=== PATIENT | male | born 1975 | race Caucasian/White ===

== ENCOUNTER → 2016-11-24 | Outpatient (CLI) | payer OTHER | END | disposition home or self-care (01) | LOC: ECT 09:35 | DX: F31.63 Bipolar disorder, current episode mixed, severe, without psychotic features (principal); F90.9 Attention-deficit hyperactivity disorder, unspecified type ==

== ENCOUNTER 2016-12-28 04:45 | Outpatient (RCR) | payer OTHER ==
[~2016-12-28] VITALS: Ht 167.6 cm; Wt 70.3 kg
[2016-12-30] MEDS ORDERED: Succinylcholine 20mg/ml 10ml vial ONE (07:00)
[2016-12-30] MEDS ORDERED: Methohexital Sodium Syr 100mg/10ml IVP ONE (07:00)
[2016-12-30] MEDS ORDERED: Midazolam 2mg/2ml Inj ONE (07:00)
[2016-12-30] MEDS ORDERED: NS 500ML IV ONE (07:00)
[2016-12-30 07:50] VITALS: BP 102/72
[2016-12-30] MEDS ORDERED: Sodium Chloride 500ML 500 ML IV ONE (08:17)
[2016-12-30 08:20] VITALS: BP 122/80
[2016-12-30 08:25] VITALS: BP 120/60
[2016-12-30 08:30] VITALS: BP 120/62
[2016-12-30 08:35] VITALS: BP 115/72
[2016-12-30 09:03] VITALS: BP 102/72
[2017-01-01] MEDS ORDERED: Methohexital Sodium Syr 100mg/10ml IVP ONE (06:00)
[2017-01-01] MEDS ORDERED: Succinylcholine 20mg/ml 10ml vial ONE (06:00)
[2017-01-01] MEDS ORDERED: NS 500ML IV ONE (06:00)
[2017-01-01] MEDS ORDERED: Midazolam 2mg/2ml Inj ONE (06:00)
[2017-01-01 07:55] VITALS: BP 110/68
[2017-01-01] MEDS ORDERED: Sodium Chloride 500ML 500 ML IV ONE (08:13)
[2017-01-01 08:15] VITALS: BP 136/62
[2017-01-01 08:20] VITALS: BP 125/64
[2017-01-01 08:25] VITALS: BP 122/68
[2017-01-01 08:30] VITALS: BP 110/65
[2017-01-04] MEDS ORDERED: Methohexital Sodium Syr 100mg/10ml IVP ONE (07:00)
[2017-01-04] MEDS ORDERED: NS 500ML IV ONE (07:00)
[2017-01-04] MEDS ORDERED: Succinylcholine 20mg/ml 10ml vial ONE (07:00)
[2017-01-04] MEDS ORDERED: Midazolam 2mg/2ml Inj ONE (07:00)
[2017-01-04 07:42] VITALS: BP 102/74
[2017-01-04] MEDS ORDERED: Sodium Chloride 500ML 500 ML IV ONE (07:55)
[2017-01-04 08:00] VITALS: BP 122/69
[2017-01-04 08:05] VITALS: BP 122/78
[2017-01-04 08:10] VITALS: BP 115/68
[2017-01-04 08:15] VITALS: BP 117/68
== END 2017-01-05 | disposition home or self-care (01) ==
LOC: ECT 04:45
DX: F31.63 Bipolar disorder, current episode mixed, severe, without psychotic features (principal); F90.9 Attention-deficit hyperactivity disorder, unspecified type
CPT/HCPCS: 90870; J0330; J2250; J7040

== ENCOUNTER 2017-01-06 05:13 | Outpatient (RCR) | payer OTHER ==
[~2017-01-06] VITALS: Ht 167.6 cm; Wt 70.3 kg
[2017-01-06] MEDS ORDERED: Methohexital Sodium Syr 100mg/10ml IVP ONE ×2 (05:14)
[2017-01-06] MEDS ORDERED: Dexamethasone 4mg/ml vial ONE (05:14)
[2017-01-06] MEDS ORDERED: Midazolam 2mg/2ml Inj ONE ×2 (05:14)
[2017-01-06] MEDS ORDERED: NS 500ML IV ONE (05:14)
[2017-01-06] MEDS ORDERED: NS 500ML ONE (05:14)
[2017-01-06] MEDS ORDERED: Succinylcholine 20mg/ml 10ml vial ONE ×2 (05:14)
[2017-01-06 07:52] VITALS: BP 102/60
[2017-01-06] MEDS ORDERED: Sodium Chloride 500ML 500 ML IV ONE (08:01)
[2017-01-06 08:10] VITALS: BP 120/60
[2017-01-06 08:15] VITALS: BP 105/53
[2017-01-06 08:20] VITALS: BP 110/69
[2017-01-06 08:25] VITALS: BP 110/53
[2017-01-08] MEDS ORDERED: Methohexital Sodium Syr 100mg/10ml IVP ONE (07:00)
[2017-01-08] MEDS ORDERED: Midazolam 2mg/2ml Inj ONE (07:00)
[2017-01-08] MEDS ORDERED: NS 500ML IV ONE (07:00)
[2017-01-08] MEDS ORDERED: Succinylcholine 20mg/ml 10ml vial ONE (07:00)
[2017-01-08 07:48] VITALS: BP 103/64
[2017-01-08] MEDS ORDERED: Sodium Chloride 500ML 500 ML IV ONE (08:03)
[2017-01-08 08:05] VITALS: BP 118/64
[2017-01-08 08:10] VITALS: BP 116/65
[2017-01-08 08:15] VITALS: BP 115/56
[2017-01-08 08:20] VITALS: BP 110/58
[2017-01-11] MEDS ORDERED: Midazolam 2mg/2ml Inj ONE (06:00)
[2017-01-11] MEDS ORDERED: Methohexital Sodium Syr 100mg/10ml IVP ONE (06:00)
[2017-01-11] MEDS ORDERED: NS 500ML IV ONE (06:00)
[2017-01-11] MEDS ORDERED: Succinylcholine 20mg/ml 10ml vial ONE (06:00)
[2017-01-11 08:15] VITALS: BP 111/78
[2017-01-11] MEDS ORDERED: Sodium Chloride 500ML 500 ML IV ONE (08:26)
[2017-01-11 08:30] VITALS: BP 120/64
[2017-01-11 08:35] VITALS: BP 120/64
[2017-01-11 08:40] VITALS: BP 123/70
[2017-01-11 08:45] VITALS: BP 122/57
[2017-01-13] MEDS ORDERED: Methohexital Sodium Syr 100mg/10ml IVP ONE (07:00)
[2017-01-13] MEDS ORDERED: NS 500ML IV ONE (07:00)
[2017-01-13] MEDS ORDERED: Succinylcholine 20mg/ml 10ml vial ONE (07:00)
[2017-01-13] MEDS ORDERED: Midazolam 2mg/2ml Inj ONE (07:00)
[2017-01-13 09:12] VITALS: BP 101/61
[2017-01-13] MEDS ORDERED: Sodium Chloride 500ML 500 ML IV ONE (09:26)
[2017-01-13 09:30] VITALS: BP 114/60
[2017-01-13 09:35] VITALS: BP 119/63
[2017-01-13 09:40] VITALS: BP 116/59
[2017-01-13 09:45] VITALS: BP 118/60
[2017-01-15] MEDS ORDERED: Midazolam 2mg/2ml Inj ONE (07:00)
[2017-01-15] MEDS ORDERED: Succinylcholine 20mg/ml 10ml vial ONE (07:00)
[2017-01-15] MEDS ORDERED: NS 500ML ONE (07:00)
[2017-01-15] MEDS ORDERED: Methohexital Sodium Syr 100mg/10ml IVP ONE (07:00)
[2017-01-15 07:56] VITALS: BP 117/74
[2017-01-15] MEDS ORDERED: Sodium Chloride 500ML 500 ML IV ONE (08:09)
[2017-01-15 08:10] VITALS: BP 123/66
[2017-01-15 08:15] VITALS: BP 118/65
[2017-01-15 08:20] VITALS: BP 116/69
[2017-01-15 08:25] VITALS: BP 121/57
[2017-01-18] MEDS ORDERED: Midazolam 2mg/2ml Inj ONE (07:00)
[2017-01-18] MEDS ORDERED: Dexamethasone 4mg/ml vial ONE (07:00)
[2017-01-18] MEDS ORDERED: Succinylcholine 20mg/ml 10ml vial ONE (07:00)
[2017-01-18] MEDS ORDERED: Methohexital Sodium Syr 100mg/10ml IVP ONE (07:00)
[2017-01-18] MEDS ORDERED: NS 500ML ONE (07:00)
[2017-01-18 07:10] VITALS: BP 102/68
[2017-01-18] MEDS ORDERED: Sodium Chloride 500ML 500 ML IV ONE (07:45)
[2017-01-18 07:50] VITALS: BP 128/67
[2017-01-18 07:55] VITALS: BP 114/72
[2017-01-18 08:00] VITALS: BP 110/62
[2017-01-18 08:05] VITALS: BP 115/66
[2017-01-22] MEDS ORDERED: Succinylcholine 20mg/ml 10ml vial ONE (06:00)
[2017-01-22] MEDS ORDERED: NS 500ML ONE (06:00)
[2017-01-22] MEDS ORDERED: Dexamethasone 4mg/ml vial ONE (06:00)
[2017-01-22] MEDS ORDERED: Methohexital Sodium Syr 100mg/10ml IVP ONE (06:00)
[2017-01-22] MEDS ORDERED: Midazolam 2mg/2ml Inj ONE (06:00)
[2017-01-22 07:45] VITALS: BP 100/62
[2017-01-22] MEDS ORDERED: Sodium Chloride 500ML 500 ML IV ONE (08:05)
[2017-01-22 08:10] VITALS: BP 126/71
[2017-01-22 08:15] VITALS: BP 112/58
[2017-01-22 08:20] VITALS: BP 106/60
[2017-01-22 08:25] VITALS: BP 107/59
[2017-01-25 08:49] VITALS: BP 104/63
[2017-01-25] MEDS ORDERED: Sodium Chloride 500ML 500 ML IV ONE (08:58)
[2017-01-25 09:00] VITALS: BP 111/56
[2017-01-25 09:05] VITALS: BP 104/51
[2017-01-25 09:10] VITALS: BP 113/48
[2017-01-25 09:15] VITALS: BP 107/52
[2017-02-03] MEDS ORDERED: NS 500ML ONE (08:00)
[2017-02-03] MEDS ORDERED: Midazolam 2mg/2ml Inj ONE (08:00)
[2017-02-03] MEDS ORDERED: Succinylcholine 20mg/ml 10ml vial ONE (08:00)
[2017-02-03] MEDS ORDERED: Dexamethasone 4mg/ml vial ONE (08:00)
[2017-02-03] MEDS ORDERED: Methohexital Sodium Syr 100mg/10ml IVP ONE (08:00)
[2017-02-03 08:06] VITALS: BP 103/63
[2017-02-03] MEDS ORDERED: Sodium Chloride 500ML 500 ML IV ONE (08:27)
[2017-02-03 08:30] VITALS: BP 134/60
[2017-02-03 08:35] VITALS: BP 128/58
[2017-02-03 08:40] VITALS: BP 115/54
[2017-02-03 08:45] VITALS: BP 116/59
== END 2017-02-04 | disposition home or self-care (01) ==
LOC: ECT 05:13
DX: F31.63 Bipolar disorder, current episode mixed, severe, without psychotic features (principal)
CPT/HCPCS: 90870; J0330; J1100; J2250; J2405; J7040

== ENCOUNTER 2017-02-22 05:40 | Outpatient (RCR) | payer OTHER ==
[~2017-02-22] VITALS: Ht 30.5 cm; Wt 0.5 kg
[2017-02-22] MEDS ORDERED: NS 500ML ONE (05:41)
[2017-02-22] MEDS ORDERED: Dexamethasone 4mg/ml vial ONE (05:41)
[2017-02-22] MEDS ORDERED: Succinylcholine 20mg/ml 10ml vial ONE (05:41)
[2017-02-22] MEDS ORDERED: Midazolam 2mg/2ml Inj ONE (05:41)
[2017-02-22] MEDS ORDERED: Methohexital Sodium Syr 100mg/10ml IVP ONE (05:41)
[2017-02-22 08:44] VITALS: BP 106/78
[2017-02-22] MEDS ORDERED: Sodium Chloride 500ML 500 ML IV ONE (09:00)
[2017-02-22 09:05] VITALS: BP 122/74
[2017-02-22 09:10] VITALS: BP 131/75
[2017-02-22 09:20] VITALS: BP 120/62
[2017-02-22 09:56] VITALS: BP 118/70
== END 2017-03-07 | disposition home or self-care (01) ==
LOC: ECT 05:40
DX: F31.63 Bipolar disorder, current episode mixed, severe, without psychotic features (principal)
CPT/HCPCS: 90870; J0330; J1100; J2250; J2405; J7040

== ENCOUNTER 2017-03-15 05:43 | Outpatient (RCR) | payer OTHER ==
[~2017-03-15] VITALS: Ht 167.6 cm; Wt 70.3 kg
[2017-03-15] MEDS ORDERED: NS 500ML ONE (05:44)
[2017-03-15] MEDS ORDERED: Midazolam 2mg/2ml Inj ONE (05:44)
[2017-03-15] MEDS ORDERED: Succinylcholine 20mg/ml 10ml vial ONE (05:44)
[2017-03-15] MEDS ORDERED: Methohexital Sodium Syr 100mg/10ml IVP ONE (05:44)
[2017-03-15] MEDS ORDERED: Dexamethasone 4mg/ml vial ONE (05:44)
[2017-03-17] MEDS ORDERED: Methohexital Sodium Syr 100mg/10ml IVP ONE (07:00)
[2017-03-17] MEDS ORDERED: Succinylcholine 20mg/ml 10ml vial ONE (07:00)
[2017-03-17] MEDS ORDERED: Dexamethasone 4mg/ml vial ONE (07:00)
[2017-03-17] MEDS ORDERED: NS 500ML ONE (07:00)
[2017-03-17] MEDS ORDERED: Midazolam 2mg/2ml Inj ONE (07:00)
[2017-03-17 10:15] VITALS: BP 116/77
[2017-03-17] MEDS ORDERED: Sodium Chloride 500ML 500 ML IV ONE (10:33)
[2017-03-17] MEDS ORDERED: Atropine Sulfate 0.4mg/ml inj IVP PRN (10:33)
[2017-03-17 10:35] VITALS: BP 127/63
[2017-03-17 10:40] VITALS: BP 132/70
[2017-03-17 10:45] VITALS: BP 130/75
[2017-03-17 10:50] VITALS: BP 126/70
[2017-03-22] MEDS ORDERED: Succinylcholine 20mg/ml 10ml vial ONE (08:00)
[2017-03-22] MEDS ORDERED: NS 500ML ONE (08:00)
[2017-03-22] MEDS ORDERED: Methohexital Sodium Syr 100mg/10ml IVP ONE (08:00)
[2017-03-22] MEDS ORDERED: Dexamethasone 4mg/ml vial ONE (08:00)
[2017-03-22] MEDS ORDERED: Midazolam 2mg/2ml Inj ONE (08:00)
[2017-03-22 10:06] VITALS: BP 117/89
[2017-03-22] MEDS ORDERED: Sodium Chloride 500ML 500 ML IV ONE (10:21)
[2017-03-22 10:25] VITALS: BP 127/63
[2017-03-22 10:30] VITALS: BP 124/76
[2017-03-22 10:35] VITALS: BP 115/59
[2017-03-22 10:40] VITALS: BP 119/73
[2017-03-22 10:45] VITALS: BP 121/62
[2017-03-29 08:23] VITALS: BP 110/84
[2017-03-29] MEDS ORDERED: Sodium Chloride 500ML 500 ML IV ONE (08:34)
[2017-03-29 08:35] VITALS: BP 123/64
[2017-03-29 08:40] VITALS: BP 128/69
[2017-03-29 08:45] VITALS: BP 136/59
[2017-03-29 08:50] VITALS: BP 125/66
[2017-04-07] MEDS ORDERED: Dexamethasone 4mg/ml vial ONE (08:00)
[2017-04-07] MEDS ORDERED: NS 500ML ONE (08:00)
[2017-04-07] MEDS ORDERED: Midazolam 2mg/2ml Inj ONE (08:00)
[2017-04-07] MEDS ORDERED: Methohexital Sodium Syr 100mg/10ml IVP ONE (08:00)
[2017-04-07] MEDS ORDERED: Succinylcholine 20mg/ml 10ml vial ONE (08:00)
[2017-04-07 08:30] VITALS: BP 112/78
[2017-04-07] MEDS ORDERED: Sodium Chloride 500ML 500 ML IV ONE (08:43)
[2017-04-07 08:45] VITALS: BP 127/78
[2017-04-07 08:50] VITALS: BP 106/64
[2017-04-07 08:55] VITALS: BP 106/65
[2017-04-07 09:00] VITALS: BP 115/64
== END 2017-04-07 | disposition home or self-care (01) ==
LOC: ECT 05:43
DX: F31.63 Bipolar disorder, current episode mixed, severe, without psychotic features (principal); F90.9 Attention-deficit hyperactivity disorder, unspecified type
CPT/HCPCS: 90870; J0330; J1100; J2250; J2405; J7040

== ENCOUNTER 2017-04-19 06:38 | Outpatient (RCR) | payer OTHER ==
[~2017-04-19] VITALS: Ht 167.6 cm; Wt 70.3 kg
[2017-04-19] MEDS ORDERED: Methohexital Sodium Syr 100mg/10ml IVP ONE (06:39)
[2017-04-19] MEDS ORDERED: Succinylcholine 20mg/ml 10ml vial ONE (06:39)
[2017-04-19] MEDS ORDERED: Midazolam 2mg/2ml Inj ONE (06:39)
[2017-04-19] MEDS ORDERED: NS 500ML ONE (06:39)
[2017-04-19] MEDS ORDERED: Dexamethasone 4mg/ml vial ONE (06:39)
[2017-04-19 08:28] VITALS: BP 127/77
[2017-04-19] MEDS ORDERED: Sodium Chloride 500ML 500 ML IV ONE (08:40)
[2017-04-19 08:45] VITALS: BP 115/72
[2017-04-19 08:50] VITALS: BP 110/60
[2017-04-19 08:55] VITALS: BP 110/64
[2017-04-19 09:00] VITALS: BP 115/64
[2017-04-19 09:05] VITALS: BP 114/67
[2017-05-05] MEDS ORDERED: Dexamethasone 4mg/ml vial ONE (08:00)
[2017-05-05] MEDS ORDERED: Methohexital Sodium Syr 100mg/10ml IVP ONE (08:00)
[2017-05-05] MEDS ORDERED: NS 500ML ONE (08:00)
[2017-05-05] MEDS ORDERED: Succinylcholine 20mg/ml 10ml vial ONE (08:00)
[2017-05-05] MEDS ORDERED: Midazolam 2mg/2ml Inj ONE (08:00)
[2017-05-05 08:38] VITALS: BP 112/75
[2017-05-05] MEDS ORDERED: Sodium Chloride 500ML 500 ML IV ONE (08:54)
[2017-05-05 08:55] VITALS: BP 154/87
[2017-05-05 09:00] VITALS: BP 134/66
[2017-05-05 09:05] VITALS: BP 119/60
[2017-05-05 09:10] VITALS: BP 119/60
[2017-05-05 09:15] VITALS: BP 112/61
== END 2017-05-05 | disposition home or self-care (01) ==
LOC: ECT 06:38
DX: F31.63 Bipolar disorder, current episode mixed, severe, without psychotic features (principal)
CPT/HCPCS: 90870; J0330; J1100; J2250; J2405; J7040

== ENCOUNTER 2017-05-24 07:31 | Outpatient (RCR) | payer OTHER ==
[~2017-05-24] VITALS: Ht 30.5 cm; Wt 0.5 kg
[2017-05-24] MEDS ORDERED: Succinylcholine 20mg/ml 10ml vial ONE (07:32)
[2017-05-24] MEDS ORDERED: Midazolam 2mg/2ml Inj ONE (07:32)
[2017-05-24] MEDS ORDERED: NS 500ML ONE (07:32)
[2017-05-24] MEDS ORDERED: Methohexital Sodium Syr 100mg/10ml IVP ONE (07:32)
[2017-05-24] MEDS ORDERED: Dexamethasone 4mg/ml vial ONE (07:32)
[2017-05-24 09:15] VITALS: BP 114/81
[2017-05-24] MEDS ORDERED: Sodium Chloride 500ML 500 ML IV ONE (09:27)
[2017-05-24 09:30] VITALS: BP 128/71
[2017-05-24 09:35] VITALS: BP 110/59
[2017-05-24 09:40] VITALS: BP 109/60
[2017-05-24 09:45] VITALS: BP 111/60
== END 2017-06-05 | disposition home or self-care (01) ==
LOC: ECT 07:31
DX: F31.63 Bipolar disorder, current episode mixed, severe, without psychotic features (principal)
CPT/HCPCS: 90870; J0330; J1100; J2250; J2405; J7040

== ENCOUNTER 2017-06-14 06:54 | Outpatient (RCR) | payer OTHER ==
[~2017-06-14] VITALS: Ht 30.5 cm; Wt 0.5 kg
[2017-06-14] MEDS ORDERED: NS 500ML ONE (06:55)
[2017-06-14] MEDS ORDERED: Midazolam 2mg/2ml Inj ONE (06:55)
[2017-06-14] MEDS ORDERED: Methohexital Sodium 500mg Vial IVP ONE (06:55)
[2017-06-14] MEDS ORDERED: Dexamethasone 4mg/ml vial ONE (06:55)
[2017-06-14] MEDS ORDERED: Succinylcholine 20mg/ml 10ml vial ONE (06:55)
[2017-06-14 08:57] VITALS: BP 127/75
[2017-06-14 09:11] VITALS: BP 127/51
[2017-06-14] MEDS ORDERED: Sodium Chloride 500ML 500 ML IV ONE (09:11)
[2017-06-14 09:16] VITALS: BP 121/52
[2017-06-14 09:21] VITALS: BP 114/56
[2017-06-14 09:26] VITALS: BP 119/63
== END 2017-07-05 | disposition home or self-care (01) ==
LOC: ECT 06:54
DX: F31.63 Bipolar disorder, current episode mixed, severe, without psychotic features (principal)
CPT/HCPCS: 90870; J0330; J1100; J2250; J2405; J3490; J7040

== ENCOUNTER 2017-07-12 08:55 | Outpatient (RCR) | payer OTHER | END 2017-08-05 | disposition home or self-care (01) | LOC: ECT 08:55 | DX: Z53.9 Procedure and treatment not carried out, unspecified reason (principal) ==